=== PATIENT | male | born 1950 | race Caucasian/White ===

== ENCOUNTER 2024-09-02 05:32 | Day surgery (SDC) | payer MEDICARE, BC ==
[2024-08-22 12:01] LABS: BASOPHILS % (AUTO) 1.2 % (0-1); EOSINOPHILS % (AUTO) 0.9 % (0-6); LYMPHOCYTES # (AUTO) 1.2 X10'3 (1.1-4.8); LYMPHOCYTES % (AUTO) 29.8 % (21-51); MEAN CORPUSCULAR HEMOGLOBIN 31.5 PG (27.0-31.0); MEAN CORPUSCULAR VOLUME 92.6 FL (78-98); MEAN PLATELET VOLUME 8.2 FL (7.4-10.4); MONOCYTES # (AUTO) 0.3 X10'3 (0-0.9); MONOCYTES % (AUTO) 8.6 % (2-12); NEUTROPHILS # (AUTO) 2.3 X10'3 (1.8-7.7); NEUTROPHILS % (AUTO) 59.5 % (42-75); PRE OP HEMATOCRIT 47.2 % (42.0-52.0); PRE OP PLATELET COUNT 205 X10'3 (140-440); PRE OP WHITE BLOOD COUNT 3.9 10'3 (4.8-10.8); RED CELL DISTRIBUTION WIDTH 13.3 % (11.5-14.5)
[2024-08-22 12:21] LABS: ALBUMIN 4.2 G/DL (3.4-5.0); ALKALINE PHOSPHATASE 81 IU/L (46-116); BLOOD UREA NITROGEN 23 MG/DL (7-18); BUN/CREATININE RATIO 23.2 (10.0-20.0); CALCIUM 9.2 MG/DL (8.5-10.1); CHLORIDE 106 MMOL/L (99-107); CREATININE 0.99 MG/DL (0.60-1.10); PRE OP ALT 41 U/L (30-65); PRE OP ANION GAP 8 (8-16); PRE OP AST 18 U/L (10-37); PRE OP BILIRUB, TOTAL 0.5 MG/DL (0.0-1.0); PRE OP GLUCOSE 109 MG/DL (70-104); PRE OP SODIUM 141 MMOL/L (135-145); TOTAL CARBON DIOXIDE 26.8 MMOL/L (24-32); eGFR 74 ML/MIN
[2024-08-22 12:51] LABS: ALBUMIN/GLOBULIN RATIO 1.2 (1.1-1.5); TOTAL PROTEIN 7.7 G/DL (6.4-8.2)
[~2024-09-02] VITALS: Ht 177.8 cm; Wt 96.1 kg
[2024-09-02] VITALS (25 sets, daily range): BP systolic 84–127; BP diastolic 49–85; PULSE 62–84; RESP 14–16; TEMP 97.6; O2SAT 93–97
[2024-09-02] MEDS: ceFAZolin 2gm in dextrose, iso 50 ML IV ONE (05:30)
[~2024-09-02 05:32] MED LIST: MULT-1085 PO; [UNRECOGNIZED DRUG - OTHER] PO
[2024-09-02] MEDS: tamsulosin 0.4mg capsule PO ONE (06:20)
[2024-09-02] MEDS: famotidine 20mg tablet PO ONE (06:20)
[2024-09-02] MEDS: ringers solution, lacted 1,000 ML IV SCH (06:22)
[2024-09-02] MEDS ORDERED: BUPIVAcaine 2.5mg/ml inj 50ml vial (contains preservative) ONE (06:45)
[2024-09-02] MEDS ORDERED: LIDOcaine 1% 30ml preserv. free vial ONE (07:01)
[2024-09-02] MEDS ORDERED: midazolam 1 mg/ML 2ml injection ONE (07:19)
[2024-09-02] MEDS ORDERED: fentaNYL/PF 50MCG/1 ML 2ML syringe ONE (07:19)
[2024-09-02] MEDS ORDERED: sevoflurane 250ml liquid IH ONE (07:23)
[2024-09-02] MEDS ORDERED: propofol inj 20 ML IV ONE (07:24)
[2024-09-02] MEDS ORDERED: rocuronium 10mg/ml inj IV ONE (07:24)
[2024-09-02] MEDS ORDERED: dexamethasone sod phosphate 4mg/ml inj. ONE (07:59)
[2024-09-02] MEDS ORDERED: ondansetron/PF 4mg/2ml inj ONE (08:11)
[2024-09-02] MEDS ORDERED: meperidine/PF 25mg/ml syringe IV PRN (08:15)
[2024-09-02] MEDS ORDERED: labetalol 20mg/4ml (5mg/ml) syringe IV PRN (08:15)
[2024-09-02] MEDS ORDERED: morphine 2 MG/ML inj. syringe IV PRN (08:15)
[2024-09-02] MEDS ORDERED: ondansetron/PF 4mg/2ml inj IV PRN (08:15)
[2024-09-02] MEDS ORDERED: ringers solution, lacted 1,000 ML IV SCH (08:15)
[2024-09-02] MEDS ORDERED: morphine 4 MG/ML inj SYRINge IV PRN (08:15)
[2024-09-02] MEDS ORDERED: proCHLORperazine 10 MG/2 ml inj IV PRN (08:15)
[2024-09-02] MEDS ORDERED: acetaminophen 1,000mg/100ml IV 100 ML IV ONE (08:18)
[2024-09-02] MEDS ORDERED: glycopyrrolate 0.2mg/ml inj ONE (08:21)
[2024-09-02] MEDS ORDERED: neostigmine methylsulfate 1 MG/ML 10ml vial ONE (08:21)
[2024-09-02] MEDS ORDERED: HYDROcodone/acetaminophen 5mg/325mg tablet PO PRN (08:45)
[2024-09-02] MEDS: meperidine/PF 25mg/ml syringe IV PRN ×2 (09:09→09:49)
== END 2024-09-02 13:29 | disposition home or self-care (01) ==
LOC: PAS 05:32
PROVIDERS: ATTEND Surgery
DX: K42.9 Umbilical hernia without obstruction or gangrene (principal); K40.90 Unilateral inguinal hernia, without obstruction or gangrene, not specified as recurrent; G47.30 Sleep apnea, unspecified; K21.9 Gastro-esophageal reflux disease without esophagitis; Z98.890 Other specified postprocedural states; Z79.899 Other long term (current) drug therapy
CPT/HCPCS: 36415; 49591; 49650; 80053; 82948; 85025; 93005; A4215; A4314; A4618; C1781; J0131; J0690; J1100; J2003; J2175; J2250; J2405; J2704; J2710; J3010; J3490; J7030; J7120; Z7506; Z7508; Z7512; Z7610